=== PATIENT | female | born 1975 | race Two or more races ===

== ENCOUNTER → 2017-05-31 | Outpatient (CLI) | payer OTHER ==
[~2017-05-31] MED LIST: Levothroid,Synthroid PO; NOHOMEMEDS
== END | disposition home or self-care (01) ==
LOC: RAD 05-06 09:00
DX: M50.321 Other cervical disc degeneration at C4-C5 level (principal); L98.9 Disorder of the skin and subcutaneous tissue, unspecified
CPT/HCPCS: 72050; 76536

== ENCOUNTER → 2017-09-08 | Outpatient (CLI) | payer OTHER | END | disposition home or self-care (01) | LOC: RAD 09-01 13:00 | DX: E04.2 Nontoxic multinodular goiter (principal) | CPT/HCPCS: 76536 ==

== ENCOUNTER → 2017-09-29 | Outpatient (CLI) | payer OTHER | END | disposition home or self-care (01) | LOC: RAD 10:00 | DX: N83.291 Other ovarian cyst, right side (principal) | CPT/HCPCS: 76856 ==

== ENCOUNTER → 2017-11-24 | Outpatient (CLI) | payer OTHER | END | disposition home or self-care (01) | LOC: RAD 11-04 09:00 | DX: R30.0 Dysuria (principal); R31.29 Other microscopic hematuria; N83.209 Unspecified ovarian cyst, unspecified side | CPT/HCPCS: 76770; 76856 ==